=== PATIENT | male | born 1940 | race Caucasian/White ===

== ENCOUNTER → 2017-08-19 | Outpatient (CLI) | payer MEDICARE ==
--- NOTE | 2017-08-19 12:29 | Diagnostic Imaging Report ---
PROCEDURE: CT abdomen and pelvis without contrast. TECHNIQUE: Multiple contiguous axial images were obtained through the abdomen and pelvis without the use of intravenous contrast. INDICATION: Hematuria. History of kidney stones Comparison with 12/04/2009. FINDINGS: The lung bases are clear. The kidneys show no evidence of renal calculi. There is no hydronephrosis. There are 2 renal cyst present on the right largest measuring 3.2 cm posteriorly and anteriorly measuring 1.1 cm. There is a small 6 mm hyperdense cortical lesion on the left which may represent a small hemorrhagic cyst. Ureters are not dilated. Bladder shows marked enlargement of the prostate. There is diffuse thickening of the bladder wall. The bladder is not overly distended at this time. The liver appears normal. There are gallstones present. The gallbladder is not dilated. Bile ducts are not dilated. Pancreas is atrophic. Spleen appears normal. The adrenal glands are normal. Aorta is atherosclerotic without aneurysm. Stomach and small bowel are nondistended. The colon shows normal stool and gas pattern. There is diffuse diverticulosis of the sigmoid colon without evidence of diverticulitis. There is no intra-abdominal adenopathy. No free air or free fluid. Bone windows show no blastic lesions. IMPRESSION: 1. Rather marked enlargement of the prostate with diffuse thickening of the bladder wall. No evidence of bladder distention at this time. 2. Kidneys show no calculi or obstruction. Cystic lesions noted in the right kidney. Small hyperdense lesion cortex of the left kidney. 3. Cholelithiasis without findings of acute cholecystitis. Dictated by: Dictated on workstation # [id number]
== END ==
LOC: RAD 11:33
PROVIDERS: ATTEND Urology
DX: N40.0 Benign prostatic hyperplasia without lower urinary tract symptoms (principal); N32.9 Bladder disorder, unspecified; K80.20 Calculus of gallbladder without cholecystitis without obstruction; Z87.442 Personal history of urinary calculi
CPT/HCPCS: 74176